=== PATIENT | male | born 1990 | race Caucasian/White ===

== ENCOUNTER 2022-03-31 13:07 | Emergency (ER) | payer SELFPAY ==
[~2022-03-31] VITALS: Ht 182.9 cm; Wt 85.0 kg
[2022-03-31 13:21] VITALS: BP 158/102
--- NOTE | 2022-03-31 14:24 | NUR ---
PT AMBULATED WITHOUT ASSIATANCE TO ER BED NO. 12
[2022-03-31] MEDS: ONDANSETRON 4 MG ODT PO ONE (14:35)
--- NOTE | 2022-03-31 14:40 | NUR ---
US AT BEDSIDE
[2022-03-31] MEDS ORDERED: ALUMINUM HYD/MAG/SIMETHICONE 30 ML UDC ONE (15:08)
[2022-03-31] MEDS ORDERED: DICYCLOMINE HCL LIQUID 10 MG/5 ML UDC ONE (15:08)
[2022-03-31 15:25] LABS: BASOPHILS % (AUTO) 0.3 % (0.0-2.0); HEMATOCRIT 48.7 % (36-52); HEMOGLOBIN 17.2 g/dL (12.0-18.0); LYMPHOCYTES # (AUTO) 0.6 K/uL (2.0-11.5); LYMPHOCYTES % (AUTO) 7.4 % (20.5-51.1); MEAN CORPUSCULAR HEMOGLOBIN 31 pg (27-31); MEAN CORPUSCULAR HGB CONC 35 g/dL (33-37); MEAN CORPUSCULAR VOLUME 88.5 fL (80-94); MONOCYTES % (AUTO) 11.8 % (1.7-9.3); NEUTROPHILS # (AUTO) 6.7 K/uL (1.8-7.7); NEUTROPHILS % (AUTO) 80.5 % (42.2-75.2); PLATELET COUNT (AUTO) 359 K/uL (140-450); RED CELL DISTRIBUTION WIDTH 13.2 % (11.6-13.7); WHITE BLOOD COUNT (AUTO) 8.3 K/uL (4.8-10.8)
[2022-03-31 15:38] LABS: APPEARANCE,URINE CLEAR (CLEAR); BILIRUBIN,URINE NEGATIVE (NEGATIVE); BLOOD, URINE NEGATIVE (NEGATIVE); COLOR,URINE YELLOW (YELLOW); LEUKOCYTE ESTERASE ,URINE NEGATIVE (NEGATIVE); NITRITE, URINE NEGATIVE (NEGATIVE); PH,URINE 6.5 (5.0-9.0); UGLUCOSE NEGATIVE (NEGATIVE)
[2022-03-31] MEDS: DICYCLOMINE HCL LIQUID 20 MG, ALUMINUM HYD/MAG/SIMETHICONE 30 ML, LIDOCAINE VISCOUS 2% ... PO ONE ×3 (15:38)
--- NOTE | 2022-03-31 15:39 | NUR ---
IMMEDIATELY AFTER ADMINISTRATION OF GI COCKTAIL, PT VOMITED 2OOCC. YARED POLK MADE AWARE
[2022-03-31 15:47] LABS: ALBUMIN 5.1 g/dL (3.4-5.0); ANION GAP 15.7 (8-16); CARBON DIOXIDE 28.2 mmol/L (21-32); CREATININE 1.6 mg/dL (0.6-1.3); POTASSIUM 3.9 mmol/L (3.5-5.1); TOTAL BILIRUBIN 1.1 mg/dL (0.0-1.0)
--- NOTE | 2022-03-31 16:43 | NUR ---
PT BACK FROM CT
[2022-03-31] MEDS: NACL 0.9% 1,000 ML IV ONE (16:55)
[2022-03-31] MEDS: ONDANSETRON 4 MG/2 ML VIAL IVP ONE (16:56)
[2022-03-31] MEDS ORDERED: METO-485 PO (17:14)
[2022-03-31] MEDS ORDERED: OMEP20EC11 PO (17:14)
--- NOTE | 2022-03-31 18:10 | NUR ---
Patient discharged with v/s stable. Written and verbal after care instructions about nausea and vomiting, abdominal pain given and explained. Patient alert, oriented and verbalized understanding of instructions. Ambulatory with steady gait. All questions addressed prior to discharge. ID band removed. Patient advised to follow up with PMD. Rx of Omeprazole, Metoclopramide given. Patient educated on indication of medication including possible reaction and side effects. Opportunity to ask questions provided and answered.
[2022-03-31 18:17] VITALS: BP 182/102
[2022-03-31 19:05] LABS: BARBITURATE, URINE NEGATIVE ng/ml (NEG <=200); BENZODIAZEPINE, URINE NEGATIVE ng/mL (NEG <=200); CANNABINOID, URINE POSITIVE ng/mL (NEG <=50); COCAINE, URINE NEGATIVE ng/mL (NEG <=300); OPIATE, URINE NEGATIVE ng/mL (NEG <=2000); PHENCYCLIDINE SCREEN,URINE NEGATIVE ng/mL (NEG <=25)
== END 2022-03-31 18:17 | disposition home or self-care (01) ==
LOC: MED 13:07
DX: R11.2 Nausea with vomiting, unspecified (principal); E86.0 Dehydration; F12.90 Cannabis use, unspecified, uncomplicated
CPT/HCPCS: 36415; 74176; 76705; 80053; 80305; 81003; 83690; 85025; 96361; 96374; 99284; J2405; J7030; Q0092; Q0162

== ENCOUNTER 2023-05-12 16:59 | Inpatient (IN) | payer MEDICAID ==
[~2023-05-12] VITALS: Ht 185.4 cm; Wt 90.7 kg
[~2023-05-12 16:59] MED LIST: METO-485 PO; OMEP20EC11 PO
[2023-05-12 17:04] VITALS: BP 161/87; PULSE 70; RESP 16; TEMP 98.3; O2SAT 99
[2023-05-12] MEDS ORDERED: NACL 0.9% 1,000 ML IV ONE ×3 (17:35→21:55)
[2023-05-12] MEDS ORDERED: ONDANSETRON 4 MG/2 ML VIAL IVP ONE ×2 (17:50→20:05)
[2023-05-12 18:11] LABS: BASOPHILS % (AUTO) 0.1 % (0.0-2.0); HEMATOCRIT 45.9 % (36-52); LYMPHOCYTES # (AUTO) 1.1 K/uL (2.0-11.5); LYMPHOCYTES % (AUTO) 7.9 % (20.5-51.1); MEAN CORPUSCULAR HEMOGLOBIN 31 pg (27-31); MEAN CORPUSCULAR HGB CONC 35 g/dL (33-37); MEAN CORPUSCULAR VOLUME 88.2 fL (80-94); MONOCYTES # (AUTO) 0.4 K/uL (0.8-1.0); MONOCYTES % (AUTO) 2.5 % (1.7-9.3); NEUTROPHILS # (AUTO) 12.7 K/uL (1.8-7.7); NEUTROPHILS % (AUTO) 89.5 % (42.2-75.2); PLATELET COUNT (AUTO) 368 K/uL (140-450); RED BLOOD CELL COUNT(AUTO) 5.21 MIL/uL (4.20-6.10); RED CELL DISTRIBUTION WIDTH 13.6 % (11.6-13.7); WHITE BLOOD COUNT (AUTO) 14.2 K/uL (4.8-10.8)
[2023-05-12 18:26] LABS: ANION GAP 23.1 (8-16); CALCIUM 9.9 mg/dL (8.5-10.1); CARBON DIOXIDE 20.5 mmol/L (21-32); CHLORIDE 98 mmol/L (98-107); CREATININE 2.6 mg/dL (0.6-1.3); GFR ARICAN-AMERICAN 37 mL/min (>90); GFR NON ARICAN-AMERICAN 31 mL/min (>90); GLUCOSE 148 mg/dL (74-106); POTASSIUM 3.6 mmol/L (3.5-5.1); SODIUM SERUM 138 mmol/L (136-145); UREA NITROGEN, BLOOD 33 mg/dL (7-18)
[2023-05-12 18:38] LABS: ALANINE AMINOTRANSFERASE 65 U/L (12-78); ALBUMIN 5.1 g/dL (3.4-5.0); ALKALINE PHOSPHATASE 94 U/L (50-136); ASPARTATE AMINOTRANSFERASE 40 U/L (15-37); TOTAL BILIRUBIN 0.8 mg/dL (0.0-1.0)
[2023-05-12] MEDS ORDERED: METOCLOPRAMIDE 10 MG/2 ML INJ VIAL IVP ONE (22:35)
[2023-05-12] MEDS ORDERED: HYDROcodone/APAP 5/325 MG 1 TAB TAB PO PRN (22:40)
[2023-05-12] MEDS ORDERED: LORazepam 2 MG/ML VIAL IVP PRN (22:40)
[2023-05-12] MEDS ORDERED: MORPHINE SULFATE 2 MG/ML SYR IVP PRN (22:40)
[2023-05-12] MEDS ORDERED: ACETAMINOPHEN 325 MG TAB PO PRN (22:40)
[2023-05-12 23:12] LABS: APPEARANCE,URINE CLEAR (CLEAR); BILIRUBIN,URINE NEGATIVE (NEGATIVE); BLOOD, URINE NEGATIVE (NEGATIVE); COLOR,URINE YELLOW (YELLOW); LEUKOCYTE ESTERASE ,URINE NEGATIVE (NEGATIVE); NITRITE, URINE NEGATIVE (NEGATIVE); PH,URINE 6.5 (5.0-9.0); PROTEIN,URINE 1+ (NEGATIVE); UGLUCOSE NEGATIVE (NEGATIVE)
[2023-05-12 23:21] LABS: AMPHETAMINE, URINE NEGATIVE ng/ml (NEG <=1000); BARBITURATE, URINE NEGATIVE ng/ml (NEG <=200); BENZODIAZEPINE, URINE NEGATIVE ng/mL (NEG <=200); CANNABINOID, URINE POSITIVE ng/mL (NEG <=50); COCAINE, URINE NEGATIVE ng/mL (NEG <=300); OPIATE, URINE NEGATIVE ng/mL (NEG <=2000); PHENCYCLIDINE SCREEN,URINE NEGATIVE ng/mL (NEG <=25)
[2023-05-12] MEDS: NACL 0.9% 1,000 ML IV SCH (23:36)
[2023-05-12 23:50] VITALS: PULSE 75; RESP 18; O2SAT 100
[2023-05-13] VITALS: BP 133/65; PULSE 75; RESP 18; TEMP 97.6; O2SAT 100
[2023-05-13] MEDS: ONDANSETRON 4 MG/2 ML VIAL IVP PRN ×3 (00:25→14:02)
[2023-05-13 04:00] VITALS: BP 123/65; PULSE 65; RESP 18; TEMP 97.9; O2SAT 97
[2023-05-13] MEDS: NACL 0.9% 1,000 ML IV SCH ×3 (05:32→19:17)
[2023-05-13 06:58] LABS: ALBUMIN 3.9 g/dL (3.4-5.0); ANION GAP 15.8 (8-16); CALCIUM 8.5 mg/dL (8.5-10.1); CARBON DIOXIDE 23.8 mmol/L (21-32); CREATININE 1.5 mg/dL (0.6-1.3); MAGNESIUM 1.9 mg/dL (1.8-2.4); POTASSIUM 3.6 mmol/L (3.5-5.1); TOTAL BILIRUBIN 0.6 mg/dL (0.0-1.0); TOTAL PROTEIN, SERUM 7.5 g/dL (6.4-8.2)
[2023-05-13 07:04] LABS: BASOPHILS % (AUTO) 0.1 % (0.0-2.0); HEMATOCRIT 38.6 % (36-52); HEMOGLOBIN 13.6 g/dL (12.0-18.0); LYMPHOCYTES # (AUTO) 1.1 K/uL (2.0-11.5); LYMPHOCYTES % (AUTO) 11.5 % (20.5-51.1); MEAN CORPUSCULAR HEMOGLOBIN 31 pg (27-31); MEAN CORPUSCULAR HGB CONC 35 g/dL (33-37); MEAN CORPUSCULAR VOLUME 88.7 fL (80-94); MONOCYTES # (AUTO) 0.4 K/uL (0.8-1.0); MONOCYTES % (AUTO) 4.6 % (1.7-9.3); NEUTROPHILS # (AUTO) 7.9 K/uL (1.8-7.7); NEUTROPHILS % (AUTO) 83.8 % (42.2-75.2); PLATELET COUNT (AUTO) 317 K/uL (140-450); RED BLOOD CELL COUNT(AUTO) 4.35 MIL/uL (4.20-6.10); RED CELL DISTRIBUTION WIDTH 13.9 % (11.6-13.7); WHITE BLOOD COUNT (AUTO) 9.4 K/uL (4.8-10.8)
[2023-05-13 08:00] VITALS: BP 121/53; PULSE 74; RESP 17; TEMP 98.4; O2SAT 100; O2SAT 99
[2023-05-13 13:46] LABS: AMYLASE 88 U/L (25-115); LIPASE 52 U/L (73-393)
[2023-05-13] MEDS ORDERED: LORazepam 2 MG/ML VIAL IVP PRN (15:35)
[2023-05-13 16:00] VITALS: BP 154/83; PULSE 69; RESP 20; TEMP 98; O2SAT 98
[2023-05-13] MEDS ORDERED: PROCHLORPERAZINE 10 MG/2 ML VIAL IVP PRN (16:45)
[2023-05-13] MEDS: PROCHLORPERAZINE 10 MG/2 ML VIAL IVP PRN (17:36)
[2023-05-13 20:00] VITALS: BP 140/93; PULSE 77; RESP 18; RESP 20; TEMP 98.6; O2SAT 98
[2023-05-14] MEDS: NACL 0.9% 1,000 ML IV SCH (03:08)
[2023-05-14 04:00] VITALS: BP 130/58; PULSE 75; RESP 18; TEMP 98.8; O2SAT 96
[2023-05-14 07:12] LABS: ALBUMIN 3.5 g/dL (3.4-5.0); ANION GAP 9.6 (8-16); CALCIUM 8.4 mg/dL (8.5-10.1); CARBON DIOXIDE 28.1 mmol/L (21-32); CREATININE 1.3 mg/dL (0.6-1.3); POTASSIUM 3.7 mmol/L (3.5-5.1); TOTAL BILIRUBIN 0.7 mg/dL (0.0-1.0); TOTAL PROTEIN, SERUM 6.7 g/dL (6.4-8.2)
[2023-05-14 08:00] VITALS: PULSE 51; RESP 17; O2SAT 98
[2023-05-14] MEDS: PROCHLORPERAZINE 10 MG/2 ML VIAL IVP PRN (13:05)
[2023-05-14 14:16] VITALS: BP 142/81; RESP 17; TEMP 97.6
[2023-05-14] MEDS ORDERED: ALTEPLASE 100 MG VIAL IV ONE (14:20)
== END 2023-05-14 16:45 | disposition home or self-care (01) | DRG 422 ==
LOC: MED 16:59 → MMU 22:37 → MTU 23:09
PROVIDERS: ADMIT Student in an Organized Health Care Education/Training Program; ATTEND Student in an Organized Health Care Education/Training Program
DX: E86.0 Dehydration (principal); N17.0 Acute kidney failure with tubular necrosis; G92.9 Unspecified toxic encephalopathy; R11.10 Vomiting, unspecified; X58.XXXA Exposure to other specified factors, initial encounter; Y93.89 Activity, other specified; Y92.89 Other specified places as the place of occurrence of the external cause; Y99.8 Other external cause status; F12.929 Cannabis use, unspecified with intoxication, unspecified
CPT/HCPCS: 36415; 71045; 80053; 80305; 81003; 82009; 82150; 82550; 83690; 83735; 84100; 84484; 85025; 87081; 96361; 96374; 96375; 96376; 99285; J0780; J2060; J2270; J2405; J2765